=== PATIENT | male | born 1975 | race Caucasian/White ===

== ENCOUNTER → 2016-08-24 | Outpatient (CLI) | payer BC ==
[~2016-08-24] MED LIST: CRDCD300 PO; DVN80 PO; SIMV20TA2 PO
[2016-08-24 10:20] LABS: ALT/SGPT 46 U/L (12-78); AST/SGOT 22 U/L (15-37); BLOOD UREA NITROGEN 19 mg/dl (7-18); BUN/CREATININE RATIO 15.9 (10-20); CARBON DIOXIDE 33 mmol/L (21-32); CHLORIDE 104 mmol/L (98-107); GLUCOSE 106 mg/dl (70-99); POTASSIUM 3.6 mmol/L (3.5-5.1); SODIUM 140 mmol/L (136-145)
[2016-08-24 10:23] LABS: ALB/GLOB RATIO 0.9 (0.9-2); ALKALINE PHOSPHATASE 107 U/L (45-117); CHOLESTEROL 182 mg/dl (0-200); CHOLESTEROL/HDL RATIO 4.6; HDL CHOLESTEROL 40 mg/dl; LDL CHOLESTEROL CALCULATED 108 mg/dl; TRIGLYCERIDES 170 mg/dl (0-150); VERY LOW DENSITY LIPOPROT CALC 34 mg/dl
== END | disposition home or self-care (01) ==
LOC: C.LAB1850 08:39
PROVIDERS: ATTEND Family Medicine
DX: I10 Essential (primary) hypertension (principal); E78.00 Pure hypercholesterolemia, unspecified

== ENCOUNTER → 2017-05-09 | Outpatient (CLI) | payer OTHER ==
--- NOTE | 2017-05-10 06:04 | PAP/PSG TECHNICIAN REPORT ---
[facility] Fashion Merchandiser Polysomnogram Report Study name: None Report date: 05/10/2017 Study date: 05/09/2017 Referring Physician: Cuca Morejon DO Name: LI HONG Interpreting Physician: Ronnie Arnold M.D. Date of : 1975 Fashion Merchandiser: Aurora Romero [facility]. Sex: Male Age: 41 StudyType: PSG PAP Weight: 280 lbs Height: 41 years, Height 5' 9" BMI: 41.34 Medications: Atorvastatin Calcium 20 mg, Amlodipine 10 mg, Losartan Potassium-HCTZ 100-25 mg, Patient History 41 yr. old male here for a new titration sleep study. Patient had a HST, the results are unavailable. Patient complains of snoring, witnessed apneas and HTN. Parameters Monitored NPSG: E1-M2, E2-M1, Fp1-M2, Fp2-M1, F3-M2, F4-M2, F4-M1, C3-M2, C4-M2, C4-M1, O1-M2, O2-M2, O2-M1, T3-M2, T4-M1, P3-M2, P4-M1, CHIN1, CHIN2, HR, EKG, Legs, PFLOW, SNOR, FLOW, CFLOW, Tidal Volume, THOR, ABDO, SpO2, PLTH, CPRESS, ETCO2 Wave, ETCO2, pH Sleep Architecture Sleep Stages Time at Lights Off 9:45:20 PM STAGES Time (min.) TST (%) Time at Lights On 5:36:20 AM Wake 11.0 -- Total Recording Time (TRT) 471.00 min. N1 15.5 3 Total Sleep Period (TSP) 469.5 min. N2 216.0 47 Total Sleep Time (TST) 460.0min. N3 96.0 21 Awake Time 11.0 min. REM 132.5 29 Wake after Sleep Onset 9.5 min. Sleep Efficiency (SE) 98 % Sleep Onset Latency (HAY) 1.5 min. Number of Stage 1 Shifts None Awakenings 9 Stage Changes 68 Number of REM periods 9 REM 132.5 29 REM Latency 71.0 min. NREM 327.5 71 Body Position Analysis Supine Right Left Side Prone Vertical Total Sleep Time (min.) 337.4 0.0 125.8 125.85 0.0 2.7 Total Sleep Time (%) 72% 0% 27% 27 0% 100% Total Sleep Time REM (min.) 120.0 0.0 12.5 None 0.0 0.0 Total Sleep Time NREM (min.) 212.9 0.0 113.3 None 0.0 1.2 Intermittent Wake (min.) 4.5 0.0 5.0 None 0.0 1.5 Total Sleep Period (%) 72% None None None None None Arousals Myoclonus (PLM) * Events Count Index Events Count Index Spontaneous 8 1 Events Awake (PLMW) 10 54.5 Respiratory 1 0.1 Events Asleep w/ Arousal (PLMA) 8 1.0 PLM 8 1 Events Asleep w/o Arousal (PLMS) 37 4.8 Snoring 8 1 Total Asleep 45 5.9 Total 25 3 Total 55 7 Respiratory Analysis * CA OA MA CH H RERA Total Count 6 0 0 0 38 0 44 Index 0.8 0.0 0.0 0 5.0 0 5.7 Mean Duration 13.4 0.0 0.0 0.00 29.2 0.0 27.0 Longest Duration 16.8 0.0 0.0 0.00 0.0 0.0 62.7 Respiratory Event Summary Total Supine ~Supine Right Left Prone REM NREM Apneas Count 6 6 0 N/A 0 N/A 0 6 Index 0.8 1 0 N/A 0.0 N/A 0 1 Hypopneas (4% Desat) Count 38 25 13 N/A 13 N/A 18 20 Index 5.0 4.5 6 N/A 6.2 N/A 8.2 3.7 Apneas & All Hypopneas Count 44 31 13 N/A 13 N/A 18 26 Index 5.7 6 6 N/A 6 N/A 8.2 4.8 Respiratory Events (Flue Blower+All Hyp+RERA) Count 44 31 13 N/A 13 N/A 18 26 Index 5.7 6 6 N/A 6.2 N/A 8.2 4.8 Respiratory Related Arousal Count 1 31 0 N/A 0 N/A 1 0 Index 0.1 0 0 N/A 0 N/A 0 0 Snoring Analysis Supine Right Left Prone REM NREM Total Snore duration 43.1 min Snores count 893 N/A 729 N/A 94 1,528 1,622 Snore mean duration 1.6 Sec Snores index 161 N/A 348 N/A 42.6 279.9 211.6 TST with snoring (%) 9.4% Desaturation Event Summary: Minimum %SpO2 Event Count Mean/Min/Max Duration(sec.) Desaturation Index % Time In Bed > 90 54 23.5 / 6.0 / 51.8 8.6 80.1 86 - 90 17 20.3 / 5.0 / 51.8 11.1 19.5 81 - 85 0 N/A 0.0 0.4 76 - 80 0 N/A 0.0 0.0 71 - 75 0 N/A 0.0 0.0 66 - 70 0 N/A 0.0 0.0 61 - 65 0 N/A 0.0 0.0 56 - 60 0 N/A 0.0 0.0 51 - 55 0 N/A 0.0 0.0 < 50 0 N/A 0.0 0.0 Total REM NREM Awake <50% 0.0 min. 0.0 min. 0.0 min. 0.0 min. 51 - 60% 0.0 min. 0.0 min. 0.0 min. 0.0 min. 61 - 70% 0.0 min. 0.0 min. 0.0 min. 0.0 min. 71 - 80% 0.0 min. 0.0 min. 0.0 min. 0.0 min. 81 - 90% 93.9 min. 29.7 min. 64.2 min. 0.0 min. 91 - 100% 377.0 min. 102.8 min. 263.2 min. 11.0 min. Average 92 91 92 93 Minimum SpO2 82 83 82 91 Desaturation Event Index 8.0 12.2 6.2 21.8 # Desat. Events below 89% 21 13 8 N/A Time(%) with Saturation below 89% 2.3 1.7 0.6 0.0 Time(min.) with Saturation below 89% 10.9 7.9 3.0 0.0 Time (mins) REM (mins) NREM (mins) % of TST SpO2 Below 90% 48 25 N23 6.1 SpO2 Below 88% 8 0 0 1 Heart Rate Analysis Min (bpm) Max (bpm) Average (bpm) Awake 61 98 71 NREM 52 94 65 REM 55 88 63 Overall 52 94 65 Supplemental O2 Values Minimum O2 level: None Value Start Time End Time Fashion Merchandiser Comments Mr. Hong slept in the left and supine positions. No cardiac arrhythmia or PLMs noted. No bruxism noted. CPAP was initiated at +4 CMH2O and up-titrated to a level of +11 CMH2O Cflex 1 , which nearly eliminated all respiratory events and snoring. A medium Garc[employer] Simplus, was used during titration. Mr. Hong did not wake to use the restroom during the night. Mr. Hong stated, I did not sleep as well as I do when I am in my own bed. The final report will be interpreted and signed by a sleep physician. The completed physician report will then be placed in the patient medical record. Therapy Event: Therapy (cm H20) 4 6 7 8 9 10 11 Total Time at Pressure (min.) 10.8 20.4 49.9 100.4 62.6 38.9 188.1 TST at Pressure (min.) 8.3 20.4 49.4 100.4 62.1 38.4 181.1 # Periods 1 1 1 1 1 1 1 Sleep Onset (min.) 1.5 0.0 0.0 0.0 0.0 0.0 0.0 REM Onset (min.) N/A N/A 41.4 0.0 0.0 26.9 0.0 Sleep Efficiency % 76 100 99 100 99 98 96 Wakefulness (%) 23.2 0.0 1.0 0.0 0.8 1.3 3.7 Wakefulness (min.) 2.5 0.0 0.5 0.0 0.5 0.5 7.0 NREM 1 (%) 27.9 0.0 4.0 1.5 1.6 1.3 4.0 NREM 1 (min.) 3.0 0.0 2.0 1.5 1.0 0.5 7.5 NREM 2 (%) 48.9 41.0 42.8 45.3 53.6 59.0 42.0 NREM 2 (min.) 5.3 8.4 21.4 45.5 33.6 22.9 79.0 NREM 3 (%) 0.0 59.0 35.0 33.4 16.8 16.7 8.5 NREM 3 (min.) 0.0 12.0 17.5 33.5 10.5 6.5 16.0 REM (%) 0.0 0.0 17.1 19.8 27.2 21.7 41.8 REM (min.) 0.0 0.0 8.5 19.9 17.1 8.4 78.6 # Arousals 1 2 2 9 5 1 5 Arousal Index 7.3 5.9 2.4 5.4 4.8 1.6 1.7 # Snore 40 233 421 396 273 217 42 Snore Index 290.5 686.9 511.0 236.7 263.6 339.5 13.9 AHI 43.6 2.9 7.3 7.8 6.8 9.4 1.7 AHI Supine 0.0 N/A N/A 8.1 6.8 9.4 2.2 AHI Non-Supine 44.9 2.9 7.3 0.0 N/A N/A 0.0 NREM AHI 43.6 2.9 4.4 4.5 9.3 2.0 1.2 REM AHI N/A N/A 21.1 21.1 0.0 35.6 2.3 RDI 43.6 2.9 7.3 7.8 6.8 9.4 1.7 # Obstructive 0 0 0 0 0 0 0 # Central Ap 0 0 0 3 2 0 1 # Mixed 0 0 0 0 0 0 0 # Hypopneas 6 1 6 10 5 6 4 RERAS 0 0 0 0 0 0 0 Total Respiratory Events 6 1 6 13 7 6 5 Time Below SpO2 89.00% (min.) 2.2 0.3 4.6 2.4 0.7 0.8 0.0 Mean NREM SpO2 (%) 90 90 91 91 92 92 93 Mean REM SpO2 (%) N/A N/A 88 90 91 91 92 Mean Sleep SpO2 (%) 90 90 90 91 92 92 92 Min NREM SpO2 (%) 86 87 86 89 82 90 89 Min REM SpO2 (%) N/A N/A 84 83 83 86 89 Position Supine (min.) 0.2 0.0 0.0 95.7 62.1 38.4 136.4 Position Non-supine (min.) 8.0 20.4 49.4 4.7 0.0 0.0 44.6 LM Index Sleep 7.3 5.9 7.3 4.2 5.8 3.1 7.0 LM Index NREM 7.3 5.9 7.3 3.0 5.3 0.0 1.2 LM Index REM N/A N/A 7.0 9.0 7.0 14.2 14.5 Mean Heart Rate (bpm) 65 64 65 67 67 66 63 Min Heart Rate (bpm) 62 59 58 59 57 57 52
--- NOTE | 2017-05-11 14:57 | POLYSOMNOGRAPH REPORT ---
CLINICAL DATA: A 41-year-old male with BMI of 41.34, referred by Dr. Morejon for a titration study. He had a home sleep apnea test which showed severe ANTONIO with an AHI of 90.3. He has complaints of snoring, witnessed apnea, and hypertension. SLEEP ARCHITECTURE: Total sleep period was 469.5 minutes. Total sleep time was 460 minutes divided between 327.5 minutes of non-REM sleep and 132.5 minutes of REM sleep. Sleep onset latency was 1.5 minutes. REM latency was 71 minutes. Sleep efficiency was 98%. Wake after sleep onset was 9.5 minutes. Sleep consisted of stage N1 3%, stage N2 47%, stage N3 21%, and REM 29%. AROUSAL DATA: Twenty five arousals recorded for an index of 3 per hour. PERIODIC LIMB MOVEMENT DATA: Forty five limb movements during sleep were noted for an index of 6 per hour with arousal index of 1 per hour. RESPIRATORY DATA: The AHI was 5.7. There were 6 central apneic episodes, the longest duration of which was 16.8 seconds. There were 38 hypopneic episodes with a mean duration of 29.2 seconds. OXIMETRY DATA: Mild hypoxemia was seen. Oxygen vee was 82%. Mean saturation was 90%. Time below 88% was 8 minutes. DATA: EKG: Heart rates ranged from 52-94 beats per minute. No arrhythmias were noted. RESOURCING CONSULTANT'S COMMENTS: The patient slept in the left and supine positions. A medium Garc[employer] Simplus mask was used. CPAP was started and was titrated incrementally up to 11 cm of water pressure. At 11 cm of water pressure, the patient slept for 181 minutes with an AHI of 1.7. IMPRESSION: Very severe sleep apnea/hypopnea with nocturnal hypoxemia corrected with CPAP 11 cm of water pressure, CPAP setting 1, medium Garc[employer] Simplus facemask. RECOMMENDATIONS: The patient could be started on the above noted treatment regimen and seen back in followup within 90 days to document efficacy and compliance. Sleep medicine consultation may be of benefit. Clinical correlation is needed. MTDD
== END | disposition home or self-care (01) ==
LOC: C.NEUR 20:00
PROVIDERS: ATTEND Family Medicine
DX: G47.33 Obstructive sleep apnea (adult) (pediatric) (principal)

== ENCOUNTER → 2017-08-07 | Outpatient (CLI) | payer OTHER ==
[~2017-08-07] VITALS: Ht 176.5 cm; Wt 125.9 kg
[2017-08-07 15:25] VITALS: BP 139/92; PULSE 93; Ht 176.5 cm; Wt 125.9 kg
== END | disposition home or self-care (01) ==
LOC: C.NEUR 14:08
PROVIDERS: ATTEND Internal Medicine Pulmonary Disease
DX: G47.33 Obstructive sleep apnea (adult) (pediatric) (principal); E66.9 Obesity, unspecified